=== PATIENT | male | born 1940 | race Caucasian/White ===

== ENCOUNTER 2017-07-26 11:03 | Inpatient (IN) | payer MEDICARE ==
[~2017-07-26] VITALS: Ht 172.7 cm; Wt 81.9 kg
[~2017-07-26 11:03] MED LIST: ALBU8.5H5 INH; ALIS300T PO; ALLO100T30 PO; ASPI-496 PO; CALC0.25 PO; CALC0.5C9 PO; CARV-39 PO; CYAN100028 SL; FESO8TAB PO; FESOTERODINE PO; FINA5TAB4 PO; FLUT16SP INH; METF500T9 PO; MIRA50TA PO; MULT-115 PO; OMEG1CAP2 PO; OMEP-110 PO; ROSU40TA PO; TIMO5DRO5 EACHEYE; TORS5TAB4 PO; TRAM50TA2 PO; WARF5TAB PO
[2017-07-26] MEDS ORDERED: ASPIRIN 81 MG TABLET CHEW ONE (11:22)
[2017-07-26] MEDS ORDERED: ASPIRIN 81 MG TABLET CHEW PO ONE (11:30)
[2017-07-26 11:32] LABS: BASOPHILS % (AUTO) 1 % (0-1); EOSINOPHILS # (AUTO) 0.53 x10^3/uL (0-0.4); EOSINOPHILS % (AUTO) 5 % (1-7); LYMPHOCYTES # (AUTO) 2.06 x10^3/uL (1-3.4); LYMPHOCYTES % (AUTO) 20 % (22-44); MD NO; MEAN CORPUSCULAR HEMOGLOBIN 30.1 pg (27.5-34.5); MEAN CORPUSCULAR VOLUME 91.3 fL (81-97); MEAN PLATELET VOLUME 7.5 fL (7.4-10.4); MONOCYTES # (AUTO) 0.84 x10^3/uL (0.2-0.8); MONOCYTES % (AUTO) 8 % (2-9); NEUTROPHILS # (AUTO) 6.75 x10^3/uL (1.8-6.8); NEUTROPHILS % (AUTO) 66 % (42-75); PLATELET COUNT 239 x10^3/uL (130-400); RED BLOOD COUNT 4.99 x10^6/uL (4.38-5.82); RED CELL DISTRIBUTION WIDTH 13.6 % (9.4-14.8)
[2017-07-26 11:44] LABS: ALBUMIN 3.5 g/dL (3.4-5.0); ANION GAP 7 mmol/L (5-15); CALCIUM 8.7 mg/dL (8.5-10.1); CHLORIDE 104 mmol/L (98-107); CREATININE 2.65 mg/dL (0.7-1.3); T4 (THYROXINE) 9.3 mcg/dL (4.5-12.1)
[2017-07-26 11:48] LABS: TROPONIN I < 0.015 ng/mL (0.000-0.045)
[2017-07-26 11:54] LABS: THYROID STIMULATING HORMONE 0.804 mIU/L (0.358-3.740)
[2017-07-26] MEDS ORDERED: SODIUM CHLORIDE FLUSH 10ML SYR IVF PRN (13:30)
[2017-07-26 15:07] VITALS: BP 175/91
[2017-07-26 15:22] VITALS: BP 155/89
[2017-07-26] MEDS ORDERED: SODIUM CHLORIDE 0.9% 1,000 ML IV SCH (16:01)
[2017-07-26] MEDS ORDERED: hydrALAzine 20 MG/ML, 1ML IV PRN (16:30)
[2017-07-26 18:06] LABS: CREATININE,URINE RANDOM 54.3 mg/dL
[2017-07-26 18:12] LABS: MICROSCOPIC NOT IND
[2017-07-26 18:19] LABS: CULTURE INDICATED? NO
[2017-07-26 19:45] VITALS: BP 147/83
[2017-07-26] MEDS ORDERED: ATORVASTATIN 80 MG TABLET PO SCH (21:00)
[2017-07-26] MEDS: CARVEDILOL 25 MG TABLET PO SCH (21:52)
[2017-07-27 02:25] VITALS: BP 132/73
[2017-07-27 05:23] LABS: BASOPHILS % (AUTO) 1 % (0-1); EOSINOPHILS # (AUTO) 0.43 x10^3/uL (0-0.4); EOSINOPHILS % (AUTO) 5 % (1-7); LYMPHOCYTES # (AUTO) 2.29 x10^3/uL (1-3.4); LYMPHOCYTES % (AUTO) 26 % (22-44); MD NO; MEAN CORPUSCULAR HGB CONC 33.2 g/dL (33.2-36.2); MEAN CORPUSCULAR VOLUME 90.3 fL (81-97); MEAN PLATELET VOLUME 7.8 fL (7.4-10.4); MONOCYTES # (AUTO) 0.89 x10^3/uL (0.2-0.8); MONOCYTES % (AUTO) 10 % (2-9); NEUTROPHILS # (AUTO) 5.01 x10^3/uL (1.8-6.8); NEUTROPHILS % (AUTO) 58 % (42-75); PLATELET COUNT 197 x10^3/uL (130-400); RED BLOOD COUNT 4.66 x10^6/uL (4.38-5.82); RED CELL DISTRIBUTION WIDTH 13.8 % (9.4-14.8)
[2017-07-27 05:33] LABS: CHLORIDE 107 mmol/L (98-107)
[2017-07-27 05:45] LABS: ALANINE AMINOTRANSFERASE 28 U/L (12-78); ALKALINE PHOSPHATASE 89 U/L (45-117); ANION GAP 5 mmol/L (5-15); BILIRUBIN,TOTAL 0.5 mg/dL (0.2-1.0); CALCIUM 8.3 mg/dL (8.5-10.1); CREATININE 2.53 mg/dL (0.7-1.3); TOTAL PROTEIN 6.5 g/dL (6.4-8.2)
[2017-07-27 07:35] VITALS: BP 176/84
[2017-07-27] MEDS: CARVEDILOL 25 MG TABLET PO SCH (08:22)
[2017-07-27] MEDS ORDERED: CYANOCOBALAMIN 1,000 MCG TABLET PO SCH (09:00)
[2017-07-27] MEDS ORDERED: MULTIVITAMIN 1 TABLET PO SCH (09:00)
[2017-07-27] MEDS ORDERED: AMLODIPINE 5 MG TABLET PO SCH (09:00)
[2017-07-27] MEDS ORDERED: ASPIRIN 81 MG TABLET EC PO SCH (09:00)
[2017-07-27] MEDS ORDERED: ALLOPURINOL 100 MG TABLET PO SCH (09:00)
[2017-07-27] MEDS ORDERED: HYDR-3341 PO (09:12)
[2017-07-27 09:22] VITALS: BP 115/65
[2017-07-28] MEDS ORDERED: CALCITRIOL 0.25 MCG CAPSULE PO SCH (09:00)
== END 2017-07-27 12:05 | disposition home or self-care (01) | DRG 683 ==
LOC: ED 13:08 → EDIP 13:09 → ED 13:12 → 5SO 14:11 → DCLOUNGE 07-27 11:52
PROVIDERS: ADMIT Hospitalist; ATTEND Hospitalist
DX: I12.9 Hypertensive chronic kidney disease with stage 1 through stage 4 chronic kidney disease, or unspecified chronic kidney disease (principal); N17.9 Acute kidney failure, unspecified; I48.0 Paroxysmal atrial fibrillation; E11.22 Type 2 diabetes mellitus with diabetic chronic kidney disease; Z95.2 Presence of prosthetic heart valve; N18.9 Chronic kidney disease, unspecified; D72.829 Elevated white blood cell count, unspecified; M10.9 Gout, unspecified; E78.5 Hyperlipidemia, unspecified; I25.10 Atherosclerotic heart disease of native coronary artery without angina pectoris; Z79.82 Long term (current) use of aspirin; Z85.46 Personal history of malignant neoplasm of prostate; Z87.891 Personal history of nicotine dependence
CPT/HCPCS: 36415; 71045; 76770; 80048; 80053; 81003; 82040; 82436; 82570; 83735; 84100; 84133; 84300; 84436; 84443; 84484; 85025; 93005; J7030

== ENCOUNTER → 2018-03-30 | Outpatient (CLI) | payer MEDICARE ==
[~2018-03-30] MED LIST changes: +HYDR-3341 PO
== END | disposition home or self-care (01) ==
LOC: CFH 10:41
PROVIDERS: ATTEND Psychiatry & Neurology Neurology
DX: G31.9 Degenerative disease of nervous system, unspecified (principal); R41.3 Other amnesia; C61 Malignant neoplasm of prostate
CPT/HCPCS: 70551; 82565